=== PATIENT | male | born 1980 | race Caucasian/White ===

== ENCOUNTER 2024-07-16 12:05 | Inpatient (IN) | payer BC ==
[2024-07-16] MEDS ORDERED: LORazepam 2 MG/ML INJ IV PRN (12:17)
[2024-07-16] MEDS ORDERED: LORazepam 1 MG TAB PO PRN ×2 (12:17→15:09)
--- NOTE | 2024-07-16 12:43 | ED ---
Alcohol HPI - General Chief Complaint: Alcohol Stated Complaint: ETOH withdrawal Time Seen by Provider: 07/16/24 12:15 Source: patient, RN notes reviewed Mode of arrival: wheelchair Limitations: no limitations - History of Present Illness Initial Comments: This is a 44-year-old male who presents to the emergency department for alcohol withdrawals. Reports a history of chronic alcoholism, and states that his last drink was around 8 PM last night. States that he had a fifth of rum. Withdrawal symptoms started several hours later. Reports feeling very nauseous, shaky, and diaphoretic. Unsure if he has a history of withdrawal seizures, but states that he has passed out before. He was hospitalized at [facility] 2 weeks ago for alcohol withdrawals, but just relocated to this area to stay with his father to help him combat the alcohol abuse. MD Complaint: alcohol withdrawal - Related Data Home Medications Medication Instructions Recorded Confirmed Albuterol Sulfate [Albuterol 2 puff INHALATION RT-Q6H PRN 07/16/24 07/16/24 Sulfate Hfa] Bumetanide [Bumex] 1 mg PO BID 07/16/24 07/16/24 Meloxicam [Mobic] 15 mg PO DAILY PRN 07/16/24 07/16/24 Metoprolol Succinate (ER) [Toprol 25 mg PO DAILY 07/16/24 07/16/24 Xl] Omeprazole 40 mg PO DAILY 07/16/24 07/16/24 Potassium Chloride ER [K-Dur 20] 20 meq PO DAILY 07/16/24 07/16/24 Tirzepatide [Mounjaro] 5 mg SQ SABILLON 07/16/24 07/16/24 metOLazone [Zaroxolyn] 5 mg PO Q2D PRN 07/16/24 07/16/24 tiZANidine [Zanaflex] 4 mg PO TID PRN 07/16/24 07/16/24 traZODone HCL 150 mg PO HS PRN 07/16/24 07/16/24 Allergies Allergy/AdvReac Type Severity Reaction Status Date / Time No Known Allergies Allergy Verified 07/16/24 13:30 Review of Systems ROS Statement: Those systems with pertinent positive or pertinent negative responses have been documented in the HPI. ROS Other: All systems not noted in ROS Statement are negative. Past Medical History Past Medical History: GERD/Reflux, Hypertension Additional Past Medical History / Comment(s): cardiomegaly, "my lungs dont work right" Past Surgical History: No Surgical Hx Reported Past Psychological History: No Psychological Hx Reported Smoking Status: Current every day smoker Past Alcohol Use History: Abuse Past Drug Use History: Marijuana General Exam Limitations: no limitations General appearance: alert, in distress Head exam: Present: atraumatic, normocephalic, normal inspection Respiratory exam: Present: normal lung sounds bilaterally. Absent: respiratory distress, wheezes, rales, rhonchi, stridor Cardiovascular Exam: Present: normal rhythm, tachycardia GI/Abdominal exam: Present: soft, normal bowel sounds. Absent: distended, tenderness, guarding, rebound, rigid Neurological exam: Present: alert, oriented X3, CN II-XII intact Psychiatric exam: Present: normal affect, normal mood Skin exam: Present: warm, dry, intact, normal color. Absent: rash Course Vital Signs 07/16/24 07/16/24 07/16/24 12:06 13:07 14:15 Temperature 98.4 F 98.5 F Pulse Rate 129 H 114 H 147 H Pulse Rate [ Pulse Oximetery ] Respiratory 24 16 18 Rate Blood Pressure 147/81 146/90 147/98 O2 Sat by Pulse 96 93 L 93 L Oximetry Fraction of Inspired Oxygen (FIO2) 07/16/24 07/16/24 07/16/24 15:31 15:42 15:43 Temperature 98.2 F Pulse Rate 113 H Pulse Rate [ 115 H Pulse Oximetery ] Respiratory 16 17 Rate Blood Pressure 138/74 O2 Sat by Pulse 93 L Oximetry Fraction of Inspired Oxygen (FIO2) 07/16/24 07/16/24 07/16/24 17:16 18:12 19:28 Temperature Pulse Rate 111 H 112 H 105 H Pulse Rate [ Pulse Oximetery ] Respiratory 19 20 18 Rate Blood Pressure 169/103 155/95 137/91 O2 Sat by Pulse 93 L 93 L 95 Oximetry Fraction of Inspired Oxygen (FIO2) 07/16/24 07/16/24 07/16/24 19:50 20:41 23:26 Temperature Pulse Rate 110 H Pulse Rate [ Pulse Oximetery ] Respiratory 16 Rate Blood Pressure O2 Sat by Pulse 97 94 L Oximetry Fraction of 50 Inspired Oxygen (FIO2) 07/17/24 07/17/24 07/17/24 00:12 04:00 06:27 Temperature Pulse Rate 101 H 117 H 120 H Pulse Rate [ Pulse Oximetery ] Respiratory 17 18 18 Rate Blood Pressure 141/93 150/97 147/101 O2 Sat by Pulse 94 L 96 97 Oximetry Fraction of Inspired Oxygen (FIO2) Medical Decision Making - Medical Decision Making This is a 44 year old male who presents to the emergency department for alcohol withdrawals. Was pt. sent in by a medical professional or institution? @ -No Did you speak to anyone other than the patient for history? @ -No Did you review nursing and triage notes? @ -Yes, and I agree, it is accurate with regards to the patient's symptoms. Were old charts reviewed? @ -No Differential Diagnosis? @ -Sympathomimetic syndrome, anti-muscarinic syndrome, serotonin syndrome, neuroleptic malignant syndrome, thyrotoxicosis, encephalitis, acute psychosis, hypoglycemia, trauma, sepsis. This is not meant to be an all-inclusive list. EKG interpreted by me (3pts min.)? @ -EKG interpreted by me demonstrating the following: Sinus tachycardia. Ventricular rate 114 bpm, IA interval 174 ms, QRS duration 99 ms, QTc 432 ms. X-rays interpreted by me (1pt min.)? @ -Not obtained CT interpreted by me (1pt min.)? @ -Not obtained U/S interpreted by me (1pt. min.)? @ -Not obtained What testing was considered but not performed? (CT, X-rays, U/S, labs)? Why? @ -None What meds were considered but not given? Why? @ -None Did you discuss the management of the patient with other professionals? @ -Yes, Jason Khan, who accepts the patient for admission. Did you reconcile home meds? @ -Yes Was smoking cessation discussed for >3mins.? @ -No Was critical care preformed (if so, how long)? @ -No Were there social determinants of health that impacted care today? How? (Homelessness, low income, unemployed, alcoholism, drug addiction, transportation, low edu. Level, literacy, decrease access to med. care, [facility], r ehab)? @ -Alcoholism, contributing to withdrawals, which is the reason for his visit today. Was there de-escalation of care discussed even if they declined? (Discuss DNR or withdrawal of care, Hospice)? @ -No What co-morbidities impacted this encounter? (DM, HTN, Smoking, COPD, CAD, Cancer, CVA, Hep., AIDS, mental health diagnosis, sleep apnea, morbid obesity)? @ -Alcoholism Was patient admitted / discharged? @ -Admitted. Lab work demonstrates mild hypomagnesemia with a magnesium of 1.4. 400mg of magnesium oxide administered. Alcohol level negative. Urinalysis negative for signs of infection. UDS positive for marijuana. Patient had a fair amount of diaphoresis and vomiting on initial examination. First CIWA was 16. IV fluids and Zofran administered. He continued to be nauseous and was then given Compazine. He was started on the CIWA protocol for the withdrawals and admitted to medicine for further management. Case discussed with ED attending Dr. Henry. Undiagnosed new problem with uncertain prognosis? @ -None Drug Therapy requiring intensive monitoring for toxicity (Heparin, Nitro, Insulin, Cardizem)? @ -None Were any procedures done? @ -None Diagnosis/symptom? @ -Alcohol withdrawals Acute, or Chronic, or Acute on Chronic? @ -Acute Uncomplicated (without systemic symptoms) or Complicated (systemic symptoms)? @ -Complicated Side effects of treatment? @ -None Exacerbation, Progression, or Severe Exacerbation] @ -Not applicable Poses a threat to life or bodily function? @ -Yes, can lead to withdrawal seizures or DTs, which can be life threatening. - Lab Data Result diagrams: 07/17/24 06:04 07/17/24 06:04 Lab Results 07/16/24 07/16/24 07/16/24 Range/Units 12:41 12:41 12:41 WBC 10.1 (3.8-10.6) k/uL RBC 5.03 (4.30-5.90) m/uL Hgb 15.6 (13.0-17.5) gm/dL Hct 46.8 (39.0-53.0) % MCV 93.0 (80.0-100.0) fL MCH 31.0 (25.0-35.0) pg MCHC 33.3 (31.0-37.0) g/dL RDW 13.7 (11.5-15.5) % Plt Count 300 (150-450) k/uL MPV 7.3 Neutrophils % 71 % Lymphocytes % 20 % Monocytes % 5 % Eosinophils % 1 % Basophils % 1 % Neutrophils # 7.1 (1.3-7.7) k/uL Lymphocytes # 2.1 (1.0-4.8) k/uL Monocytes # 0.5 (0-1.0) k/uL Eosinophils # 0.1 (0-0.7) k/uL Basophils # 0.1 (0-0.2) k/uL PT 11.6 (10.0-12.5) sec INR 1.1 (<1.2) Sodium 132 L (137-145) mmol/L Potassium 3.7 (3.5-5.1) mmol/L Chloride 95 L (98-107) mmol/L Carbon Dioxide 32 H (22-30) mmol/L Anion Gap 5 mmol/L BUN 8 L (9-20) mg/dL Creatinine 0.87 (0.66-1.25) mg/dL Est GFR (CKD-EPI)AfAm >90 (>60 ml/min/1.73 sqM) Est GFR (CKD-EPI)NonAf >90 (>60 ml/min/1.73 sqM) Glucose 167 H (74-99) mg/dL Calcium 9.0 (8.4-10.2) mg/dL Phosphorus 2.6 (2.5-4.5) mg/dL Magnesium 1.4 L (1.6-2.3) mg/dL Total Bilirubin 2.2 H (0.2-1.3) mg/dL AST 46 (17-59) U/L ALT 40 (4-49) U/L Alkaline Phosphatase 151 H (38-126) U/L Total Protein 7.3 (6.3-8.2) g/dL Albumin 4.3 (3.5-5.0) g/dL Amylase 40 (30-110) U/L Lipase 184 (23-300) U/L Urine Color Urine Appearance (Clear) Urine pH (5.0-8.0) Ur Specific [place] (1.001-1.035) Urine Protein (Negative) Urine Glucose (UA) (Negative) Urine Ketones (Negative) Urine Blood (Negative) Urine Nitrite (Negative) Urine Bilirubin (Negative) Urine Urobilinogen (<2.0) mg/dL Ur Leukocyte Esterase (Negative) Urine RBC (0-5) /hpf Urine WBC (0-5) /hpf Ur Squamous Epith Cells (0-4) /hpf Urine Mucus (None) /hpf Urine Opiates Screen (NotDetected) Ur Oxycodone Screen (NotDetected) Urine Methadone Screen (NotDetected) Ur Barbiturates Screen (NotDetected) U Tricyclic Antidepress (NotDetected) Ur Phencyclidine Scrn (NotDetected) Ur Amphetamines Screen (NotDetected) U Methamphetamines Scrn (NotDetected) U Benzodiazepines Scrn (NotDetected) Urine Cocaine Screen (NotDetected) U Marijuana (THC) Screen (NotDetected) Serum Alcohol <10 mg/dL 07/16/24 Range/Units 13:48 WBC (3.8-10.6) k/uL RBC (4.30-5.90) m/uL Hgb (13.0-17.5) gm/dL Hct (39.0-53.0) % MCV (80.0-100.0) fL MCH (25.0-35.0) pg MCHC (31.0-37.0) g/dL RDW (11.5-15.5) % Plt Count (150-450) k/uL MPV Neutrophils % % Lymphocytes % % Monocytes % % Eosinophils % % Basophils % % Neutrophils # (1.3-7.7) k/uL Lymphocytes # (1.0-4.8) k/uL Monocytes # (0-1.0) k/uL Eosinophils # (0-0.7) k/uL Basophils # (0-0.2) k/uL PT (10.0-12.5) sec INR (<1.2) Sodium (137-145) mmol/L Potassium (3.5-5.1) mmol/L Chloride (98-107) mmol/L Carbon Dioxide (22-30) mmol/L Anion Gap mmol/L BUN (9-20) mg/dL Creatinine (0.66-1.25) mg/dL Est GFR (CKD-EPI)AfAm (>60 ml/min/1.73 sqM) Est GFR (CKD-EPI)NonAf (>60 ml/min/1.73 sqM) Glucose (74-99) mg/dL Calcium (8.4-10.2) mg/dL Phosphorus (2.5-4.5) mg/dL Magnesium (1.6-2.3) mg/dL Total Bilirubin (0.2-1.3) mg/dL AST (17-59) U/L ALT (4-49) U/L Alkaline Phosphatase (38-126) U/L Total Protein (6.3-8.2) g/dL Albumin (3.5-5.0) g/dL Amylase (30-110) U/L Lipase (23-300) U/L Urine Color Yellow Urine Appearance Clear (Clear) Urine pH 8.0 (5.0-8.0) Ur Specific [place] 1.017 (1.001-1.035) Urine Protein 1+ H (Negative) Urine Glucose (UA) Negative (Negative) Urine Ketones 1+ H (Negative) Urine Blood Negative (Negative) Urine Nitrite Negative (Negative) Urine Bilirubin 1+ H (Negative) Urine Urobilinogen 6.0 (<2.0) mg/dL Ur Leukocyte Esterase Negative (Negative) Urine RBC <1 (0-5) /hpf Urine WBC 2 (0-5) /hpf Ur Squamous Epith Cells 1 (0-4) /hpf Urine Mucus Rare H (None) /hpf Urine Opiates Screen Not Detected (NotDetected) Ur Oxycodone Screen Not Detected (NotDetected) Urine Methadone Screen Not Detected (NotDetected) Ur Barbiturates Screen Not Detected (NotDetected) U Tricyclic Antidepress Not Detected (NotDetected) Ur Phencyclidine Scrn Not Detected (NotDetected) Ur Amphetamines Screen Not Detected (NotDetected) U Methamphetamines Scrn Not Detected (NotDetected) U Benzodiazepines Scrn Not Detected (NotDetected) Urine Cocaine Screen Not Detected (NotDetected) U Marijuana (THC) Screen Detected H (NotDetected) Serum Alcohol mg/dL Disposition Clinical Impression: Alcohol withdrawal Disposition: ADMITTED IP TO THIS HOSP
[2024-07-16 12:49] LABS: Basophils # (A) 0.1 k/uL (0-0.2); Basophils % (A) 1 %; Eosinophils # (A) 0.1 k/uL (0-0.7); Eosinophils % (A) 1 %; HCT 46.8 % (39.0-53.0); HGB 15.6 gm/dL (13.0-17.5); Lymphocytes # (A) 2.1 k/uL (1.0-4.8); Lymphocytes % (A) 20 %; MCHC 33.3 g/dL (31.0-37.0); Mean Platelet Volume 7.3; Monocytes # (A) 0.5 k/uL (0-1.0); Monocytes % (A) 5 %; Neutrophils # (A) 7.1 k/uL (1.3-7.7); Neutrophils % (A) 71 %; Platelet Count 300 k/uL (150-450); RBC 5.03 m/uL (4.30-5.90); RDW 13.7 % (11.5-15.5); WBC 10.1 k/uL (3.8-10.6)
[2024-07-16] MEDS: SODIUM CHLORIDE 0.9% 1,000 ML IV STA (12:49)
[2024-07-16 13:00] LABS: ALT 40 U/L (4-49); AST 46 U/L (17-59); African American GFR (CKD) >90 (>60 ml/min/1.73 sqM); Albumin 4.3 g/dL (3.5-5.0); Alcohol <10 mg/dL; Alkaline Phosphatase 151 U/L (38-126); Amylase 40 U/L (30-110); Anion Gap 5 mmol/L; Blood Urea Nitrogen 8 mg/dL (9-20); Carbon Dioxide 32 mmol/L (22-30); Chloride 95 mmol/L (98-107); Glucose 167 mg/dL (74-99); Lipase 184 U/L (23-300); Magnesium 1.4 mg/dL (1.6-2.3); Non-African American GFR(CKD) >90 (>60 ml/min/1.73 sqM); Phosphorus 2.6 mg/dL (2.5-4.5); Potassium 3.7 mmol/L (3.5-5.1); Sodium 132 mmol/L (137-145); Total Bilirubin 2.2 mg/dL (0.2-1.3); Total Protein 7.3 g/dL (6.3-8.2)
[2024-07-16 13:09] LABS: INR 1.1 (<1.2); Prothrombin Time 11.6 sec (10.0-12.5)
[2024-07-16] MEDS: ONDANSETRON 4 MG/2 ML VIAL IVP STA (13:11)
[2024-07-16] MEDS: THIAMINE 100 MG/ML 2 ML VIAL IM STA (13:13)
[2024-07-16 14:03] LABS: Appearance,Urine Clear (Clear); Bilirubin,Urine 1+ (Negative); Blood,Urine Negative (Negative); Color,Urine Yellow; Glucose,Urine (UA) Negative (Negative); Ketones,Urine 1+ (Negative); Leukocyte Esterase,Urine Negative (Negative); Mucus,Urine Rare /hpf; Nitrite,Urine Negative (Negative); Protein,Urine 1+ (Negative); RBC,Urine <1 /hpf (0-5); Specific Gravity,Urine 1.017 (1.001-1.035); Squamous Epithelial Cell,Urine 1 /hpf (0-4); WBC,Urine 2 /hpf (0-5)
[2024-07-16 14:10] LABS: Amphetamine Screen,Urine Not Detected (NotDetected); Barbiturate Screen,Urine Not Detected (NotDetected); Benzodiazepines Screen,Urine Not Detected (NotDetected); Cocaine Screen,Urine Not Detected (NotDetected); Methadone Screen, Urine Not Detected (NotDetected); Opiate Screen,Urine Not Detected (NotDetected); Oxycodone Screen, Urine Not Detected (NotDetected); Phencyclidine Screen,Urine Not Detected (NotDetected); Tricyclic Antidepressant,Urine Not Detected (NotDetected); Urn Cannabinoid Scrn Detected (NotDetected)
[2024-07-16] MEDS: PROCHLORPERAZINE INJ 10 MG/2 ML VIAL IVP STA (14:18)
[2024-07-16] MEDS: LORazepam 2 MG/ML INJ IV PRN ×2 (14:21→15:37)
[2024-07-16] MEDS ORDERED: ACETAMINOPHEN TAB 325 MG TAB PO PRN (14:51)
[2024-07-16] MEDS ORDERED: MORPHINE SULFATE 4 MG/ML SYRINGE IV PRN (14:51)
[2024-07-16] MEDS ORDERED: KETOROLAC 15 MG/ML 1 ML VIAL IVP PRN (14:51)
[2024-07-16] MEDS ORDERED: IBUPROFEN 400 MG TAB PO PRN (14:51)
[2024-07-16] MEDS ORDERED: NALOXONE 0.4 MG/ML 1 ML VIAL IV PRN (14:51)
[2024-07-16] MEDS ORDERED: ALBUTEROL NEBULIZED 2.5 MG/3 ML INHALATION PRN (14:52)
[2024-07-16] MEDS ORDERED: MELOXICAM 7.5 MG TAB PO PRN (14:52)
[2024-07-16] MEDS ORDERED: traZODone HCL 50 MG TAB PO PRN (14:52)
[2024-07-16] MEDS ORDERED: metOLazone 5 MG TAB PO PRN (14:52)
[2024-07-16] MEDS ORDERED: LORazepam 0.5 MG TAB PO PRN (15:09)
[2024-07-16] MEDS: MAGNESIUM SULFATE-D5W PMX 1 GM in DEXTROSE/WATER 1 100ML.BAG IVPB SCH (15:26)
[2024-07-16] MEDS: BUMETANIDE 1 MG TAB PO SCH (15:27)
--- NOTE | 2024-07-16 15:41 | P.HPIM ---
History of Present Illness H&P Date: 07/16/24 History of Presenting Illness: Patient is a 44-year-old male with a past medical history of alcoholism with reports of 1 previous alcohol withdrawal seizure, nonischemic cardiomyopathy with congestive heart failure (unknown type as patient does not know and no echocardiogram is available in records), chronic hypoxic respiratory failure 2 to 4 L O2 dependent at all times, obstructive sleep apnea BiPAP dependent nightly, hypertension, [id number] diabetes mellitus, cannabinoid use disorder with daily use, and nicotine dependence. He presented to the emergency department with complaints of alcohol withdrawal. Patient reports drinking approximately 1-2 fifths of alcohol daily for greater than 10 years last drank a fifth of rum around 8 PM yesterday evening. Patient reports awakening several hours later feeling symptoms of withdrawal including severe nausea, tremors, and diaphoresis. Patient reports he is trying to quit drinking and just moved in with his father and attempts to get away from his previous habits and lifestyle. Patient denies having any dizziness, lightheadedness, chest pain, palpitations, shortness of breath, cough or congestion, abdominal pain or discomfort, or experiencing any numbness/tingling/weakness/swelling in his extremities. Upon arrival to our facility, patient underwent evaluation in the emergency department. Vital signs upon arrival show blood pressure 147/81, heart rate 129, respiratory rate 24, temp 98.4 F, and SpO2 of 96% on room air. EKG was completed showing sinus tachycardia at 114 bpm with no significant T wave or ST abnormalities upon personal review and interpretation. Labs were completed and reviewed. CBC unremarkable with WBC count of 10.1, hemoglobin 15.6, platelet count of 300. Coagulation profile normal findings. BMP showing hyponatremia with sodium of 132 and metabolic alkalosis with chloride of 95, bicarb of 32, and anion gap of 5. Blood glucose 167. Magnesium 1.4. Liver profile showing elevated total bili of 2.2 and alkaline phosphatase of 151. Amylase and lipase normal findings. Urinalysis positive for protein, ketones, and bilirubin. Urine drug screen positive for marijuana. Serum alcohol level less than 10. CIWA score was 16 and patient medicated with Ativan for withdrawal. Patient admitted under our services at this time. Review of systems: Pertinent positives and negatives as discussed in HPI, a complete review of systems was performed and all other systems are negative. Physical exam: Vital signs reviewed and stable. General: Nontoxic, no distress and appears stated age. Obese. Derm: Skin slightly diaphoretic Head: Atraumatic, normocephalic and symmetric. Eyes: EOM's intact, no lid lag, and anicteric sclera Mouth: no lip lesions, mucus membranes moist Cardiovascular: regular rate and rhythm with normal S1S2, no murmur, positive posterior tibial pulses bilaterally, and cap refill < 2 seconds. Lungs: Respirations even, regular, and unlabored on room air. Lungs CTA bilaterally, no rhonchi, no rales, no wheezing, and no accessory muscle usage. Abdominal: soft, nontender to palpation, no guarding, no appreciable organomegaly Ext: ROM intact. No gross muscle atrophy, no edema, no contractures Neuro: Speech clear, face symmetrical and CN II-XII grossly intact with no noted focal neuro deficits. Mild tremors in upper extremities. Psych: Alert and oriented to person, place, time, and situation. Appropriate and pleasant affect. Assessment and Plan of Care: Alcohol withdrawal in active alcoholic Non-anion gap metabolic alkalosis Transaminitis with hyperbilirubinemia, secondary to daily alcohol abuse Hypomagnesemia Hyponatremia -Order placed for monitoring of CIWA scores and patient to be medicated with Ativan 0.5 mg every 4 hours as needed for CIWA score of 4-5, Ativan 1 mg every 4 hours for CIWA score of 6-7, Ativan 2 mg every 3 hours CIWA score of 8-9, and Ativan 2 mg every 2 hours forr CIWA score of 10 or greater. -Hold Bumex and metolazone and place patient on gentle IV fluid hydration with 0.9% normal saline at 100 cc/h, will reevaluate stopping fluids and restarting diuretics in 24 hours. -Thiamine 100 mg daily, and Multivitamin daily, and Folate 1 mg daily -Seizure, fall, aspiration, and elopement precautions in place. -Urine drug screen positive for marijuana -Continued close monitoring of electrolytes and replace as needed. -Telemetry monitoring. History of nonischemic cardiomyopathy History of congestive heart failure of unknown type Chronic hypoxic respiratory failure, home oxygen dependent -Hold metolazone and Bumex at this time as patient currently requires IV fluid hydration. -Patient to continue with metoprolol 25 mg daily. -Telemetry monitoring -Continue supplemental oxygen as needed to maintain SpO2 equal to or greater than 92%. Patient reports baseline home O2 needs 2 to 4 L at all times. -Continue nebulizer treatment as needed for wheezing/shortness of breath. Obstructive sleep apnea -Continue BiPAP nightly and while napping. Diabetes mellitus with hyperglycemia -Hold Mounjaro and patient placed on glycemic protocol with NovoLog sliding scale. Nicotine dependence -Recommend smoking cessation. Order placed for nicotine patch 21 mg daily. Obesity Class IV, BMI of 54.6 kg/m -Recommend structured outpatient weight management program. Data and imaging reviewed: As stated above in HPI The patient is admitted with an anticipated greater than 2 midnight stay for evaluation of acute alcohol withdrawal in active alcoholic CODE STATUS: Full Code DVT prophylaxis: Lovenox Anticipated discharge date: Pending clinical course Anticipated discharge place: Home Patient was seen independently by Nurse Practitioner. This document was prepared using [employer] dictation software. Please allow for errors in biostatistics manager while rare they do occur. I reviewed the documentation as provided by the MILLER above, who is the original author of this note. I agree with the documented assessment and plan, with the following changes: none Past Medical History Past Medical History: GERD/Reflux, Hypertension Additional Past Medical History / Comment(s): cardiomegaly, "my lungs dont work right" Past Surgical History: No Surgical Hx Reported Past Psychological History: No Psychological Hx Reported Smoking Status: Current every day smoker Past Alcohol Use History: Abuse Past Drug Use History: Marijuana Medications and Allergies Home Medications Medication Instructions Recorded Confirmed Type Albuterol Sulfate [Albuterol 2 puff INHALATION RT-Q6H PRN 07/16/24 07/16/24 History Sulfate Hfa] Bumetanide [Bumex] 1 mg PO BID 07/16/24 07/16/24 History Meloxicam [Mobic] 15 mg PO DAILY PRN 07/16/24 07/16/24 History Metoprolol Succinate (ER) [Toprol 25 mg PO DAILY 07/16/24 07/16/24 History Xl] Omeprazole 40 mg PO DAILY 07/16/24 07/16/24 History Potassium Chloride ER [K-Dur 20] 20 meq PO DAILY 07/16/24 07/16/24 History Tirzepatide [Mounjaro] 5 mg SQ SABILLON 07/16/24 07/16/24 History metOLazone [Zaroxolyn] 5 mg PO Q2D PRN 07/16/24 07/16/24 History tiZANidine [Zanaflex] 4 mg PO TID PRN 07/16/24 07/16/24 History traZODone HCL 150 mg PO HS PRN 07/16/24 07/16/24 History Allergies Allergy/AdvReac Type Severity Reaction Status Date / Time No Known Allergies Allergy Verified 07/16/24 13:30 Physical Exam Osteopathic Statement: *. No significant issues noted on an osteopathic structural exam other than those noted in the History and Physical/Consult. Vitals: Vital Signs Temp Pulse Resp BP Pulse Ox 07/16/24 15:31 98.2 F 113 H 16 138/74 93 L 07/16/24 14:15 98.5 F 147 H 18 147/98 93 L 07/16/24 13:07 114 H 16 146/90 93 L 07/16/24 12:06 98.4 F 129 H 24 147/81 96 Intake and Output 07/16/24 07/16/24 07/16/24 06:59 14:59 22:59 Other: Weight 167.829 kg Results CBC & Chem 7: 07/16/24 12:41 07/16/24 12:41 Labs: Abnormal Lab Results - Last 24 Hours (Table) 07/16/24 07/16/24 Range/Units 12:41 13:48 Sodium 132 L (137-145) mmol/L Chloride 95 L (98-107) mmol/L Carbon Dioxide 32 H (22-30) mmol/L BUN 8 L (9-20) mg/dL Glucose 167 H (74-99) mg/dL Magnesium 1.4 L (1.6-2.3) mg/dL Total Bilirubin 2.2 H (0.2-1.3) mg/dL Alkaline Phosphatase 151 H (38-126) U/L Urine Protein 1+ H (Negative) Urine Ketones 1+ H (Negative) Urine Bilirubin 1+ H (Negative) Urine Mucus Rare H (None) /hpf U Marijuana (THC) Screen Detected H (NotDetected)
[2024-07-16] MEDS: MAGNESIUM OXIDE 400 MG TAB PO STA (15:48)
[2024-07-16] MEDS ORDERED: DEXTROSE 50% SYRINGE 50 ML IVP PRN ×2 (18:26)
[2024-07-16] MEDS: SODIUM CHLORIDE 0.9% 1,000 ML IV SCH (18:43)
[2024-07-16] MEDS: NICOTINE 21MG/24HR PATCH TRANSDERM SCH (18:50)
[2024-07-16 19:29] LABS: Glucose,Whole Blood 161 mg/dL (70-110)
[2024-07-16] MEDS: INSULIN ASPART (NovoLOG) 100 UNIT/ML VIAL SQ SCH (20:18)
[2024-07-17] MEDS: LORazepam 2 MG/ML INJ IV PRN (01:58)
[2024-07-17] MEDS: tiZANidine 4 MG TAB PO PRN (02:10)
[2024-07-17] MEDS: ONDANSETRON 4 MG/2 ML VIAL IVP PRN (02:11)
[2024-07-17 06:26] LABS: HCT 44.2 % (39.0-53.0); HGB 13.9 gm/dL (13.0-17.5); MCHC 31.5 g/dL (31.0-37.0); MCV 95.1 fL (80.0-100.0); Mean Platelet Volume 7.3; Platelet Count 267 k/uL (150-450); RBC 4.65 m/uL (4.30-5.90); WBC 9.3 k/uL (3.8-10.6)
[2024-07-17 06:35] LABS: ALT 39 U/L (4-49); AST 49 U/L (17-59); African American GFR (CKD) >90 (>60 ml/min/1.73 sqM); Albumin 3.9 g/dL (3.5-5.0); Alkaline Phosphatase 122 U/L (38-126); Anion Gap 5 mmol/L; Blood Urea Nitrogen 8 mg/dL (9-20); Calcium 8.4 mg/dL (8.4-10.2); Carbon Dioxide 31 mmol/L (22-30); Chloride 96 mmol/L (98-107); Glucose 133 mg/dL (74-99); Non-African American GFR(CKD) >90 (>60 ml/min/1.73 sqM); Potassium 3.5 mmol/L (3.5-5.1); Sodium 132 mmol/L (137-145); Total Bilirubin 1.8 mg/dL (0.2-1.3); Total Protein 6.7 g/dL (6.3-8.2)
[2024-07-17 07:36] LABS: Glucose,Whole Blood 130 mg/dL (70-110)
[2024-07-17] MEDS ORDERED: POTASSIUM CHLORIDE ER 20 MEQ TAB.ER PO SCH (09:00)
[2024-07-17] MEDS ORDERED: PANTOPRAZOLE 40 MG/10 ML VIAL IV SCH (09:00)
[2024-07-17] MEDS: PANTOPRAZOLE 40 MG TABLET PO SCH (09:45)
[2024-07-17] MEDS: METOPROLOL SUCCINATE (ER) 25 MG TAB.ER.24H PO SCH (09:45)
[2024-07-17] MEDS: THIAMINE 100 MG TAB PO SCH (09:45)
[2024-07-17] MEDS: ENOXAPARIN 40 MG/0.4 ML SYRINGE SQ SCH (09:45)
[2024-07-17] MEDS: FOLIC ACID 1 MG TAB PO SCH (09:45)
[2024-07-17] MEDS: MULTIVITAMINS, THERA 1 EACH TAB PO SCH (09:45)
[2024-07-17 11:57] LABS: Glucose,Whole Blood 142 mg/dL (70-110)
[2024-07-17 17:58] LABS: Glucose,Whole Blood 119 mg/dL (70-110)
--- NOTE | 2024-07-17 18:06 | P.PN ---
Subjective Progress Note Date: 07/17/24 Hospital course: Patient is a 44-year-old male with a past medical history of alcoholism with reports of 1 previous alcohol withdrawal seizure, nonischemic cardiomyopathy with congestive heart failure (unknown type as patient does not know and no echocardiogram is available in records), chronic hypoxic respiratory failure 2 to 4 L O2 dependent at all times, obstructive sleep apnea BiPAP dependent nightly, hypertension, [id number] diabetes mellitus, cannabinoid use disorder with daily use, and nicotine dependence. He presented to the emergency department with complaints of alcohol withdrawal. Patient reports drinking approximately 1-2 fifths of alcohol daily for greater than 10 years last drank a fifth of rum around 8 PM yesterday evening. Patient reports awakening several hours later feeling symptoms of withdrawal including severe nausea, tremors, and diaphoresis. Patient reports he is trying to quit drinking and just moved in with his father and attempts to get away from his previous habits and lifestyle. Patient denies having any dizziness, lightheadedness, chest pain, palpitations, shortness of breath, cough or congestion, abdominal pain or discomfort, or experiencing any numbness/tingling/weakness/swelling in his extremities. Upon arrival to our facility, patient underwent evaluation in the emergency department. Vital signs upon arrival show blood pressure 147/81, heart rate 129, respiratory rate 24, temp 98.4 F, and SpO2 of 96% on room air. EKG was completed showing sinus tachycardia at 114 bpm with no significant T wave or ST abnormalities upon personal review and interpretation. Labs were completed and reviewed. CBC unremarkable with WBC count of 10.1, hemoglobin 15.6, platelet count of 300. Coagulation profile normal findings. BMP showing hyponatremia with sodium of 132 and metabolic alkalosis with chloride of 95, bicarb of 32, and anion gap of 5. Blood glucose 167. Magnesium 1.4. Liver profile showing elevated total bili of 2.2 and alkaline phosphatase of 151. Amylase and lipase normal findings. Urinalysis positive for protein, ketones, and bilirubin. Urine drug screen positive for marijuana. Serum alcohol level less than 10. CIWA score was 16 and patient medicated with Ativan for withdrawal. Patient admitted under our services at this time. Physical exam: Patient seen and fully evaluated at bedside this morning. He reports mild naus ea otherwise denies any complaints at this time. Vital signs reviewed and stable. General: Nontoxic, no distress and appears stated age. Obese. Derm: Skin slightly diaphoretic Head: Atraumatic, normocephalic and symmetric. Eyes: EOM's intact, no lid lag, and anicteric sclera Mouth: no lip lesions, mucus membranes moist Cardiovascular: regular rate and rhythm with normal S1S2, no murmur, positive posterior tibial pulses bilaterally, and cap refill < 2 seconds. Lungs: Respirations even, regular, and unlabored on room air. Lungs CTA bilaterally, no rhonchi, no rales, no wheezing, and no accessory muscle usage. Abdominal: soft, nontender to palpation, no guarding, no appreciable organomeg latia Ext: ROM intact. No gross muscle atrophy, no edema, no contractures Neuro: Speech clear, face symmetrical and CN II-XII grossly intact with no noted focal neuro deficits. Mild tremors in upper extremities. Psych: Alert and oriented to person, place, time, and situation. Appropriate and pleasant affect. Assessment and Plan of Care: Alcohol withdrawal in active alcoholic Non-anion gap metabolic alkalosis Transaminitis with hyperbilirubinemia, secondary to daily alcohol abuse Hypomagnesemia Hyponatremia -Continue monitoring of CIWA scores and patient to be medicated with Ativan 0.5 mg every 4 hours as needed for CIWA score of 4-5, Ativan 1 mg every 4 hours for CIWA score of 6-7, Ativan 2 mg every 3 hours CIWA score of 8-9, and Ativan 2 mg every 2 hours forr CIWA score of 10 or greater. Current CIWA score is 1. Patient has received 5 mg of Ativan since admission. -Hold Bumex and metolazone and continue gentle IV fluid hydration with 0.9% normal saline at 100 cc/h, will reevaluate stopping fluids and restarting diur etics in 24 hours. -Thiamine 100 mg daily, and Multivitamin daily, and Folate 1 mg daily -Seizure, fall, aspiration, and elopement precautions in place. -Urine drug screen positive for marijuana -Continued close monitoring of electrolytes and replace as needed. -Telemetry monitoring. History of nonischemic cardiomyopathy History of congestive heart failure of unknown type Chronic hypoxic respiratory failure, home oxygen dependent -Hold metolazone and Bumex at this time as patient currently requires IV fluid hydration. -Patient to continue with metoprolol 25 mg daily. -Telemetry monitoring -Continue supplemental oxygen as needed to maintain SpO2 equal to or greater than 92%. Patient reports baseline home O2 needs 2 to 4 L at all times. -Continue nebulizer treatment as needed for wheezing/shortness of breath. Obstructive sleep apnea -Continue BiPAP nightly and while napping. Diabetes mellitus with hyperglycemia -Hold Sharlene and patient placed on glycemic protocol with NovoLog sliding scale. Nicotine dependence -Recommend smoking cessation. Order placed for nicotine patch 21 mg daily. Obesity Class IV, BMI of 54.6 kg/m -Recommend structured outpatient weight management program. Data and imaging reviewed: Morning labs reviewed. CBC unremarkable. BMP showing hyponatremia with sodium of 132 and non-anion gap metabolic alkalosis with chloride of 96, bicarb of 31, and anion gap of 5. Blood glucose 133. Magnesium 2.0. Liver profile showing hyperbilirubinemia with total bili of 1.8. Vital signs reviewed. Blood pressure 153/114, heart rate 102, respiratory rate 18, and SpO2 of 98% on 6 L. CODE STATUS: Full Code DVT prophylaxis: Lovenox Anticipated discharge date: Pending clinical course, pending CIWA scores and Ativan needs over the next 24 hours possible discharge tomorrow morning. Anticipated discharge place: Home Patient was seen independently by Nurse Practitioner. This document was prepared using [employer] dictation software. Please allow for errors in production line mechanic while rare they do occur. I reviewed the documentation as provided by the MILLER above, who is the original author of this note. I agree with the documented assessment and plan, with the following changes: none Objective - Vital Signs Vital signs: Vital Signs Temp 98.2 F 07/16/24 15:31 Pulse 102 H 07/17/24 08:00 Resp 18 07/17/24 08:00 BP 153/114 07/17/24 08:00 Pulse Ox 98 07/17/24 08:00 FiO2 50 07/16/24 19:50 Intake & Output 07/16/24 07/17/24 07/17/24 18:59 06:59 18:59 Weight 167.829 kg - Labs CBC & Chem 7: 07/17/24 06:04 07/17/24 06:04 Labs: Abnormal Lab Results - Last 24 Hours (Table) 07/16/24 07/16/24 07/16/24 Range/Units 12:41 13:48 19:28 Sodium 132 L (137-145) mmol/L Chloride 95 L (98-107) mmol/L Carbon Dioxide 32 H (22-30) mmol/L BUN 8 L (9-20) mg/dL Glucose 167 H (74-99) mg/dL POC Glucose (mg/dL) 161 H (70-110) mg/dL Hemoglobin A1c (<=6.0) % Magnesium 1.4 L (1.6-2.3) mg/dL Total Bilirubin 2.2 H (0.2-1.3) mg/dL Alkaline Phosphatase 151 H (38-126) U/L Urine Protein 1+ H (Negative) Urine Ketones 1+ H (Negative) Urine Bilirubin 1+ H (Negative) Urine Mucus Rare H (None) /hpf U Marijuana (THC) Screen Detected H (NotDetected) 07/17/24 07/17/24 07/17/24 Range/Units 06:04 06:04 07:24 Sodium 132 L (137-145) mmol/L Chloride 96 L (98-107) mmol/L Carbon Dioxide 31 H (22-30) mmol/L BUN 8 L (9-20) mg/dL Glucose 133 H (74-99) mg/dL POC Glucose (mg/dL) 130 H (70-110) mg/dL Hemoglobin A1c 7.1 H (<=6.0) % Magnesium (1.6-2.3) mg/dL Total Bilirubin 1.8 H (0.2-1.3) mg/dL Alkaline Phosphatase (38-126) U/L Urine Protein (Negative) Urine Ketones (Negative) Urine Bilirubin (Negative) Urine Mucus (None) /hpf U Marijuana (THC) Screen (NotDetected)
[2024-07-17 19:26] VITALS: RESP 20
[2024-07-17 21:02] LABS: Glucose,Whole Blood 115 mg/dL (70-110)
[2024-07-18 03:23] VITALS: PULSE 93
[2024-07-18 06:53] LABS: Glucose,Whole Blood 109 mg/dL (70-110)
[2024-07-18 08:06] VITALS: BP 146/90; TEMP 98.4
[2024-07-18 09:00] LABS: HCT 45.7 % (39.6-50.0); HGB 14.7 g/dL (13.0-17.0); MCH 30.7 pg (27.0-32.0); MCHC 32.2 g/dL (32.0-37.0); MCV 95.4 FL (80.0-97.0); NRBC Per 100 WBC 0 X 10*3/uL (0.00-0.01); Platelet Count 194 X 10*3/uL (140-440); RBC 4.79 X 10*6/uL (4.40-5.60); RDW 13.8 % (11.5-14.5); WBC 8.96 X 10*3/uL (4.50-10.00)
[2024-07-18 09:33] LABS: ALT 49 U/L (10-49); AST 68 U/L (14-35); Albumin 3.8 g/dL (3.8-4.9); Albumin/Globulin Ratio 1.36 Ratio (1.60-3.17); Alkaline Phosphatase 112 U/L (41-126); BUN/Creat Ratio 8.64 Ratio (12.00-20.00); Blood Urea Nitrogen 9.5 mg/dL (9.0-27.0); Calcium 8.8 mg/dL (8.7-10.3); Carbon Dioxide 28.7 mmol/L (21.6-31.8); Chloride 96 mmol/L (96-109); Globulin 2.8 g/dL (1.6-3.3); Glucose 96 mg/dL (70-110); Magnesium 2.1 mg/dL (1.5-2.4); Potassium 4.2 mmol/L (3.5-5.5); Sodium 137 mmol/L (135-145); Total Bilirubin 0.8 mg/dL (0.3-1.2); Total Protein 6.6 g/dL (6.2-8.2)
--- NOTE | 2024-07-18 11:00 | P.DS ---
Providers Date of admission: 07/16/24 14:34 Expected date of discharge: 07/18/24 Attending physician: Ang Arvizu MD Primary care physician: Physician Nonstaff Hospital Course: Discharge Diagnosis: Alcohol withdrawal in active alcoholic. CIWA score is 1. Ativan needs over the last 24 hours only 4 mg. Pt showing no signs of acute withdrawal at this time. Had discussion with patient regarding strong recommendations for rehab, he declined. Stating he is going to stay with his dad. Pt provided with outpatient resources and counseling information as well as information for local AA meetings. Patient strongly encouraged to avoid any and all alcohol use. Non-anion gap metabolic alkalosis. Resolved after IV fluid hydration. Transaminitis with hyperbilirubinemia, secondary to daily alcohol abuse. Strongly recommended cessation of any and all alcohol use. Hypomagnesemia. Resolved. Hyponatremia. Resolved. History of nonischemic cardiomyopathy History of congestive heart failure of unknown type. Resume home cardiac medication regimen with Bumex 1 mg twice daily, metolazone 5 mg every other day as needed for edema, and metoprolol 25 mg daily. Chronic hypoxic respiratory failure, home oxygen dependent Continue baseline home supplemental oxygen. Continue nebulizer treatment as needed for wheezing/shortness of breath. Obstructive sleep apnea. Continue BiPAP nightly and while napping. Diabetes mellitus with hyperglycemia. Resume Mounjaro 5 mg subcu weekly. Nicotine dependence. Recommend smoking cessation. Order placed for nicotine patch 21 mg daily. Obesity Class IV, BMI of 54.6 kg/m. Recommend structured outpatient weight management program. Hospital course: Patient is a 44-year-old male with a past medical history of alcoholism with reports of 1 previous alcohol withdrawal seizure, nonischemic cardiomyopathy with congestive heart failure (unknown type as patient does not know and no echocardiogram is available in records), chronic hypoxic respiratory failure 2 to 4 L O2 dependent at all times, obstructive sleep apnea BiPAP dependent nightly, hypertension, [id number] diabetes mellitus, cannabinoid use disorder with daily use, and nicotine dependence. He presented to the emergency department with complaints of alcohol withdrawal. Patient reports drinking ap proximately 1-2 fifths of alcohol daily for greater than 10 years last drank a fifth of rum around 8 PM yesterday evening. Patient reports awakening several hours later feeling symptoms of withdrawal including severe nausea, tremors, and diaphoresis. Patient reports he is trying to quit drinking and just moved in with his father and attempts to get away from his previous habits and lifestyle. Patient denies having any dizziness, lightheadedness, chest pain, palpitations, shortness of breath, cough or congestion, abdominal pain or discomfort, or experiencing any numbness/tingling/weakness/swelling in his extremities. Upon arrival to our facility, patient underwent evaluation in the emergency department. Vital signs upon arrival show blood pressure 147/81, heart rate 129, respiratory rate 24, temp 98.4 F, and SpO2 of 96% on room air. EKG was completed showing sinus tachycardia at 114 bpm with no significant T wave or ST abnormalities upon personal review and interpretation. Labs were completed and reviewed. CBC unremarkable with WBC count of 10.1, hemoglobin 15.6, platelet count of 300. Coagulation profile normal findings. BMP showing hyponatremia with sodium of 132 and metabolic alkalosis with chloride of 95, bicarb of 32, and anion gap of 5. Blood glucose 167. Magnesium 1.4. Liver profile showing elevated total bili of 2.2 and alkaline phosphatase of 151. Amylase and lipase normal findings. Urinalysis positive for protein, ketones, and bilirubin. Urine drug screen positive for marijuana. Serum alcohol level less than 10. CIWA score was 16 and patient medicated with Ativan for withdrawal. Patient admitted under our services at this time. Patient underwent assistance with medical detox over two night/3-day hospitalization. Current CIWA score is 1 and Ativan needs over the past 24 hours only 4 mg. Physical exam: Patient seen and fully evaluated at bedside this morning. He reports mild nausea otherwise denies any complaints at this time. Vital signs reviewed and stable. General: Nontoxic, no distress and appears stated age. Obese. Derm: Skin slightly diaphoretic Head: Atraumatic, normocephalic and symmetric. Eyes: EOM's intact, no lid lag, and anicteric sclera Mouth: no lip lesions, mucus membranes moist Cardiovascular: regular rate and rhythm with normal S1S2, no murmur, positive posterior tibial pulses bilaterally, and cap refill < 2 seconds. Lungs: Respirations even, regular, and unlabored on room air. Lungs CTA bilaterally, no rhonchi, no rales, no wheezing, and no accessory muscle usage. Abdominal: soft, nontender to palpation, no guarding, no appreciable organomegaly Ext: ROM intact. No gross muscle atrophy, no edema, no contractures Neuro: Speech clear, face symmetrical and CN II-XII grossly intact with no noted focal neuro deficits. Mild tremors in upper extremities. Psych: Alert and oriented to person, place, time, and situation. Appropriate and pleasant affect. A total of 34 minutes of time were spent preparing this complex discharge summary. Pt was discharged on 07/18/2024 at 8:54 AM. Patient was seen independently by Nurse Practitioner. This document was prepared using [employer] dictation software. Please allow for errors in bag patcher while rare they do occur. I reviewed the documentation as provided by the MILLER above, who is the original author of this note. I agree with the documented assessment and plan, with the following changes: none Patient Condition at Discharge: Stable Plan - Discharge Summary Discharge Rx Participant: Yes New Discharge Prescriptions: Continue Bumetanide [BUMEX] 1 mg PO BID tiZANidine [Zanaflex] 4 mg PO TID PRN PRN Reason: Muscle Spasm metOLazone [Zaroxolyn] 5 mg PO Q2D PRN PRN Reason: Edema Albuterol Sulfate [Albuterol Sulfate Hfa] 2 puff INHALATION RT-Q6H PRN PRN Reason: Shortness Of Breath traZODone HCL 150 mg PO HS PRN PRN Reason: Insomnia Omeprazole 40 mg PO DAILY Metoprolol Succinate (ER) [Toprol XL] 25 mg PO DAILY Meloxicam [Mobic] 15 mg PO DAILY PRN PRN Reason: Pain Potassium Chloride ER [K-Dur 20] 20 meq PO DAILY Tirzepatide [Mounjaro] 5 mg SQ SABILLON Discharge Medication List Albuterol Sulfate [Albuterol Sulfate Hfa] 2 puff INHALATION RT-Q6H PRN 07/16/24 [History] Bumetanide [BUMEX] 1 mg PO BID 07/16/24 [History] Meloxicam [Mobic] 15 mg PO DAILY PRN 07/16/24 [History] Metoprolol Succinate (ER) [Toprol XL] 25 mg PO DAILY 07/16/24 [History] Omeprazole 40 mg PO DAILY 07/16/24 [History] Potassium Chloride ER [K-Dur 20] 20 meq PO DAILY 07/16/24 [History] Tirzepatide [Mounjaro] 5 mg SQ SABILLON 07/16/24 [History] metOLazone [Zaroxolyn] 5 mg PO Q2D PRN 07/16/24 [History] tiZANidine [Zanaflex] 4 mg PO TID PRN 07/16/24 [History] traZODone HCL 150 mg PO HS PRN 07/16/24 [History] Follow up Appointment(s)/Referral(s): Trevor Stack MD [REFERRING] - 08/01/24 3:00 pm (Please call and schedule appointment prior to discharge, pt is new to area and will need PCP for managment of his underlying medical conditions including diabetes and cardiac conditions. ) Activity/Diet/Wound Care/Special Instructions: Activity: As tolerated. Take breaks as needed. Diet: Heart healthy and carb consistent diet. Avoid salts, or foods with hidden salts such as canned or boxed foods and frozen dinners. Extra salt makes your heart work harder and traps the fluid in your body for longer. Special Instructions: Take all of your medications as directed and remember to keep all of your doctor's appointments and follow-up as needed. Strongly recommend avoidance of any and all alcohol use Thank you for allowing us to participate in your care, it was truly a pleasure having you for our patient!!! Discharge/Stand Alone Forms: AA Meetings [facility], AA Meetings [facility], [facility] Resources, Outpatient Counseling, Outpatient Therapy List Discharge Disposition: HOME SELF-CARE
[2024-07-22] MEDS ORDERED: PATIENT'S OWN (Tirzepatide [Mounjaro] 5 MG/0.5 ML Pen.Injctr) SQ SCH (09:00)
== END 2024-07-18 10:29 | disposition home or self-care (01) | DRG 897 ==
LOC: EC 12:05 → 3SCARD 14:34 → 4SSUR 07-17 13:38
PROVIDERS: ADMIT Internal Medicine; ATTEND Internal Medicine
PROC: HZ2ZZZZ Detoxification Services for Substance Abuse Treatment (ICD-10-PCS; principal; 2024-07-18)
DX: F10.239 Alcohol dependence with withdrawal, unspecified (principal); E87.1 Hypo-osmolality and hyponatremia; E87.3 Alkalosis; I42.8 Other cardiomyopathies; J96.11 Chronic respiratory failure with hypoxia; R17 Unspecified jaundice; Z68.43 Body mass index [BMI] 50.0-59.9, adult; I50.9 Heart failure, unspecified; R74.01 Elevation of levels of liver transaminase levels; I11.0 Hypertensive heart disease with heart failure; E11.65 Type 2 diabetes mellitus with hyperglycemia; E83.42 Hypomagnesemia; G47.33 Obstructive sleep apnea (adult) (pediatric); Z79.1 Long term (current) use of non-steroidal anti-inflammatories (NSAID); Z79.85 Long-term (current) use of injectable non-insulin antidiabetic drugs; Z99.81 Dependence on supplemental oxygen; Z71.41 Alcohol abuse counseling and surveillance of alcoholic
CPT/HCPCS: 36415; 80053; 80306; 80320; 81001; 82150; 83036; 83690; 83735; 84100; 85025; 85027; 85610; 93005; 94660; 96361; 96365; 96366; 96372; 96375; 96376; 99285